=== PATIENT | female | born 1940 | race Caucasian/White ===

== ENCOUNTER 2016-04-27 10:00 | Day surgery (SDC) | payer MEDICARE ==
[2016-04-27 13:50] VITALS: BP 164/70
--- NOTE | 2016-04-28 15:22 | IR ---
PICC LINE PLACEMENT: HISTORY: Infection requiring long-term antibiotic therapy PROCEDURE: Ultrasound and fluoroscopic guidance of PICC line placement. COMPLICATIONS: None ANESTHESIA: 1. 1% Lidocaine locally. FINDINGS/TECHNIQUE: The procedure was explained to the patient. The risks, complications, benefits and alternatives were discussed and any questions were answered. Informed consent was obtained. The patient was placed supine on the fluoroscopic table and prepped and draped in the usual sterile fash ion. Utilizing a 21 gauge needle and sonographic and fluoroscopic guidance, access in the right cep halic vein was achieved and there is placement of a 0.018 guidewire. The vein is patent. A 4-F dominguez th was placed over the guidewire. The guidewire and dilator were removed and a 4-F. PICC line was pl aced through the sheath with the tip at the level of the SVC. The sheath was removed, the catheter w as flushed and sutured into position. The patient was stable throughout the procedure and remained s table upon discharge from the Department of Radiology. The vein puncture was patent under ultrasound. A herman scale image was obtained to document patency of the vein punctured. All elements of the maximal barrier technique were utilized. FLUOROSCOPY TIME: 0.2 minute IMPRESSION: Successful PICC line placement under ultrasound and fluoroscopic guidance.
== END 2016-04-27 13:25 | disposition home or self-care (01) ==
LOC: CATHCVL 10:00
PROVIDERS: ATTEND Radiology Diagnostic Radiology
DX: N39.0 Urinary tract infection, site not specified (principal); B96.20 Unspecified Escherichia coli [E. coli] as the cause of diseases classified elsewhere; I10 Essential (primary) hypertension; E11.9 Type 2 diabetes mellitus without complications; M19.90 Unspecified osteoarthritis, unspecified site; F41.9 Anxiety disorder, unspecified; F32.9 Major depressive disorder, single episode, unspecified; Z79.82 Long term (current) use of aspirin; Z79.52 Long term (current) use of systemic steroids; Z79.899 Other long term (current) drug therapy; Z88.1 Allergy status to other antibiotic agents; Z87.891 Personal history of nicotine dependence
CPT/HCPCS: 36569; 76937; 77001